=== PATIENT | female | born 1955 ===

== ENCOUNTER 2021-08-01 16:36 | Emergency (ER) | payer SELFPAY ==
[~2021-08-01] VITALS: Ht 170.2 cm; Wt 73.6 kg
[2021-08-01 16:41] VITALS: BP 146/78
== END 2021-08-01 16:52 | disposition home or self-care (01) ==
LOC: ER 16:39
DX: Z02.81 Encounter for paternity testing (principal); V87.7XXA Person injured in collision between other specified motor vehicles (traffic), initial encounter; Y93.89 Activity, other specified; Y92.89 Other specified places as the place of occurrence of the external cause; Y99.8 Other external cause status
CPT/HCPCS: 99281; 99283